=== PATIENT | male | born 1980 | race African-American/Black ===

== ENCOUNTER 2019-10-31 17:57 | Emergency (ER) | payer OTHER ==
[~2019-10-31] VITALS: Ht 188 cm; Wt 83.6 kg
[2019-10-31 18:07] VITALS: BP 124/71
[2019-10-31] MEDS ORDERED: ONDANSETRON ODT 4 MG PO ONE (19:00)
[2019-10-31 19:14] LABS: BASOPHILS # (AUTO) 0.04 x10^3/uL (0-0.1); BASOPHILS % (AUTO) 1 % (0-1); EOSINOPHILS % (AUTO) 0 % (1-7); LYMPHOCYTES # (AUTO) 1.43 x10^3/uL (1-3.4); LYMPHOCYTES % (AUTO) 14 % (22-44); MD NO; MEAN CORPUSCULAR HGB CONC 31.8 g/dL (33.2-36.2); MEAN CORPUSCULAR VOLUME 84.8 fL (81-97); MEAN PLATELET VOLUME 8.2 fL (7.4-10.4); MONOCYTES # (AUTO) 0.46 x10^3/uL (0.2-0.8); MONOCYTES % (AUTO) 5 % (2-9); NEUTROPHILS # (AUTO) 8.13 x10^3/uL (1.8-6.8); NEUTROPHILS % (AUTO) 81 % (42-75); PLATELET COUNT 262 x10^3/uL (130-400); RED BLOOD COUNT 5.96 x10^6/uL (4.38-5.82); RED CELL DISTRIBUTION WIDTH 12.9 % (9.4-14.8)
[2019-10-31 19:23] LABS: ALBUMIN 4.1 g/dL (3.4-5.0); ANION GAP 2 mmol/L (5-15); CALCIUM 9.6 mg/dL (8.5-10.1); CHLORIDE 106 mmol/L (98-107); CREATININE 1.01 mg/dL (0.7-1.3)
[2019-10-31] MEDS ORDERED: ONDANSETRON ODT 4 MG ONE (20:27)
== END 2019-10-31 20:40 | disposition home or self-care (01) ==
LOC: ED 20:18
DX: B34.9 Viral infection, unspecified (principal); Z20.828 Contact with and (suspected) exposure to other viral communicable diseases; R11.2 Nausea with vomiting, unspecified; R94.31 Abnormal electrocardiogram [ECG] [EKG]
CPT/HCPCS: 36415; 80048; 82040; 85025; 87635; 93005; 99284; Q0162

== ENCOUNTER 2020-07-04 10:00 | Emergency (ER) | payer OTHER ==
[~2020-07-04] VITALS: Ht 177.8 cm; Wt 82.0 kg
--- NOTE | 2020-07-04 10:26 | NUR ---
PT BIB EMS FOR WITNESSED SZ THAT "LAST ABOUT 30 SECONDS". PER EMS HE HAS BEEN POSTICTAL THE ENTIRE DURATION WITH HIM. "HE WAS THRASHING ABOUT WHEN HE FIRST ARRIVED SO WE GAVE HIM 5MG VERSED IM. WE GOT HIM TO THE AMBULANCE AND GAVE HIM ANOTHER 2.5MG VERSED IV". GIRLFRIEND SAYS HIS ONLY HX IF THAT OF SZ AND HIS LAST SZ WAS 7 YEARS AGO. TAKES LAMICTAL 100MG TID. PT ON 15L 02 NONE REBREATHER. EKG COMPLETE. CONNECTED TO ALL MONITORING EQUIPMENT. WILL CONTINUE TO MONITOR
--- NOTE | 2020-07-04 10:39 | NUR ---
PT AROUSABLE TO VERBAL STIMULI
[2020-07-04 10:52] LABS: BASOPHILS % (AUTO) 1 % (0-1); EOSINOPHILS % (AUTO) 1 % (1-7); LYMPHOCYTES % (AUTO) 16 % (22-44); MEAN CORPUSCULAR HEMOGLOBIN 27.8 pg (27.5-34.5); MEAN CORPUSCULAR HGB CONC 32.5 g/dL (33.2-36.2); MONOCYTES % (AUTO) 3 % (2-9); NEUTROPHILS % (AUTO) 80 % (42-75); PLATELET COUNT 226 x10^3/uL (130-400); RED BLOOD COUNT 5.86 x10^6/uL (4.38-5.82); RED CELL DISTRIBUTION WIDTH 13.4 % (9.4-14.8)
[2020-07-04 10:53] LABS: MD NO
[2020-07-04 10:58] LABS: ALBUMIN 4.1 g/dL (3.4-5.0); ANION GAP 12 mmol/L (5-15); CALCIUM 8.9 mg/dL (8.5-10.1); CHLORIDE 110 mmol/L (98-107)
[2020-07-04 11:02] LABS: ALANINE AMINOTRANSFERASE 30 U/L (12-78); ALKALINE PHOSPHATASE 90 U/L (45-117); BILIRUBIN,TOTAL 0.8 mg/dL (0.2-1.0); CREATININE 1.23 mg/dL (0.7-1.3); TOTAL PROTEIN 7.8 g/dL (6.4-8.2)
--- NOTE | 2020-07-04 11:05 | NUR ---
PT PLACED ON 2 LITERS 02 VIA NC. PT TOLERATING WELL
[2020-07-04] MEDS ORDERED: LAMOTRIGINE 100 MG TABLET PO ONE (12:00)
--- NOTE | 2020-07-04 12:00 | NUR ---
PT TOLERTED PO MEDS
[2020-07-04 12:43] VITALS: BP 129/78
== END 2020-07-04 12:52 | disposition home or self-care (01) ==
LOC: ED 10:51
DX: G40.409 Other generalized epilepsy and epileptic syndromes, not intractable, without status epilepticus (principal); R00.0 Tachycardia, unspecified; R55 Syncope and collapse
CPT/HCPCS: 80053; 82962; 85025; 93005; 99285

== ENCOUNTER 2020-09-12 16:36 | Emergency (ER) | payer OTHER ==
[~2020-09-12] VITALS: Ht 188 cm; Wt 82.0 kg
[2020-09-12] MEDS ORDERED: LAMO300T2 PO (17:09)
--- NOTE | 2020-09-12 17:38 | NUR ---
pt to CT
--- NOTE | 2020-09-12 17:51 | NUR ---
back from CT
--- NOTE | 2020-09-12 18:25 | NUR ---
PATIENT RESTING IN GURNEY WITH EYES CLOSED, NADN, VSS, FAMILY MEMBER AT BEDSIDE, SEIZURE PRECAUTIONS IN PLACE, CALL LIGHT WITHIN REACH, NO FURTHER NEEDS AT THIS TIME. WAITING FOR DISCHARGE PAPERWORK.
[2020-09-12 18:27] VITALS: BP 114/66
[2020-09-12] MEDS ORDERED: ACETAMINOPHEN 325 MG TABLET ONE (18:37)
--- NOTE | 2020-09-12 18:47 | NUR ---
Patient given discharge instructions and they have confirmed that they understand the instructions. Patient stable and ambulatory with steady gait from ED with significant other.
[2020-09-12] MEDS ORDERED: ACETAMINOPHEN 325 MG TABLET PO ONE (19:00)
== END 2020-09-12 18:48 | disposition home or self-care (01) ==
LOC: ED 17:07
DX: G40.309 Generalized idiopathic epilepsy and epileptic syndromes, not intractable, without status epilepticus (principal); R51.9 Headache, unspecified
CPT/HCPCS: 70450; 93005; 99284

== ENCOUNTER → 2020-09-13 | Outpatient (CLI) | payer OTHER ==
[~2020-09-13] MED LIST: LAMO300T2 PO
== END | disposition home or self-care (01) ==
LOC: RAD 12:40
PROVIDERS: ATTEND Nurse Practitioner Family
DX: G93.89 Other specified disorders of brain (principal); R56.9 Unspecified convulsions
CPT/HCPCS: 70551

== ENCOUNTER → 2020-10-18 | Outpatient (CLI) | payer OTHER ==
[~2020-10-18] MED LIST changes: +GADOTERATE 10 MMOL/20 ML VIAL ONE
== END | disposition home or self-care (01) ==
LOC: CFH 12:11
PROVIDERS: ATTEND Psychiatry & Neurology Neurology
DX: I69.30 Unspecified sequelae of cerebral infarction (principal); I63.89 Other cerebral infarction
CPT/HCPCS: 70544; 70549; A9575